=== PATIENT | female | born 1980 | race Two or more races ===

== ENCOUNTER 2020-01-09 09:50 | Outpatient (CLI) | payer OTHER | END 2020-01-09 10:03 | disposition home or self-care (01) | LOC: RAD 09:50 | PROVIDERS: ATTEND Internal Medicine | DX: N85.6 Intrauterine synechiae (principal); D28.2 Benign neoplasm of uterine tubes and ligaments; N93.8 Other specified abnormal uterine and vaginal bleeding ==